=== PATIENT | male | born 1955 | race African-American/Black ===

== ENCOUNTER 2024-04-12 05:35 | Day surgery (SDC) | payer MEDICARE, MEDICAID ==
[2024-04-08 09:48] VITALS: BMI 26.9
[2024-04-12] MEDS ORDERED: Acetaminophen 500 MG TAB ONE (07:47)
[2024-04-12] MEDS ORDERED: PROPOFOL 20 ML ONE (08:01)
[2024-04-12] MEDS ORDERED: Ondansetron PF 4 MG/2 ML Vial ONE (08:01)
[2024-04-12] MEDS ORDERED: Dexamethasone 4 mg/ml Vial ONE (08:01)
[2024-04-12] MEDS ORDERED: Lidocaine 1% PF 5 ML VIAL ONE (08:01)
[2024-04-12] MEDS ORDERED: fentaNYL 50 mcg/mL 1 mL Vial ONE (08:02)
[2024-04-12] MEDS ORDERED: Midazolam HCl 2 mg/2 ml Vial ONE ×2 (08:02→08:16)
[2024-04-12] MEDS ORDERED: CEFAZOLIN 2 GM VIAL ONE (08:16)
[2024-04-12] MEDS ORDERED: ePHEDrine Sulfate 50 MG/10 ML VIAL ONE (08:45)
== END 2024-04-12 10:38 | disposition home or self-care (01) ==
LOC: CSHSDC 05:35
PROVIDERS: ATTEND Otolaryngology
PROC: 07T Lymphatic and Hemic Systems, Resection (ICD-10-PCS; principal; 2024-04-12)
DX: D17.0 Benign lipomatous neoplasm of skin and subcutaneous tissue of head, face and neck (principal); F32.A Depression, unspecified; I10 Essential (primary) hypertension; J45.909 Unspecified asthma, uncomplicated; E78.5 Hyperlipidemia, unspecified; K21.9 Gastro-esophageal reflux disease without esophagitis; Z79.899 Other long term (current) drug therapy; Z87.891 Personal history of nicotine dependence
CPT/HCPCS: 38510; 93005; J1100; J2250; J2405; J2704; J3010; 88304; 93010